=== PATIENT | male | born 1945 | race Caucasian/White ===

== ENCOUNTER 2023-03-26 11:57 | Emergency (ER) | payer MEDICARE, OTHER ==
[~2023-03-26] VITALS: Ht 175.3 cm; Wt 99.8 kg
[~2023-03-26 11:57] MED LIST: ASPI81CH; NAPR500 PO; RXCLIN PO; TRAM50 PO
[2023-03-26 14:37] LABS: BASOPHILS ABSOLUTE AUTO 0.04 K/mm3 (0.00-0.23); BASOPHILS PERCENT AUTO 1 % (0-2); EOSINOPHILS ABSOLUTE AUTO 0.06 K/mm3 (0.00-0.68); EOSINOPHILS PERCENT AUTO 1 % (0-6); Hematocrit 46.7 % (37.0-53.0); Hemoglobin 16.2 g/dL (13.5-17.5); IMMATURE GRAN ABSOLUTE AUTO 0.02 K/mm3 (0.00-0.10); IMMATURE GRAN PERCENT AUTO 0 % (0-1); LYMPHOCYTES PERCENT AUTO 22 % (21-46); MONOCYTES PERCENT AUTO 7 % (4-13); Mean Corpuscular HGB 31.2 pg (26.0-34.0); Mean Corpuscular HGB Conc 34.7 g/dL (31.5-36.5); Mean Corpuscular Volume 90 fL (80-100); Mean Platelet Volume 10.4 fL (9.1-12.4); NEUTROPHILS PERCENT AUTO 70 % (41-73); Platelet Count 243 K/mm3 (150-400); RDW Coefficient Variation 12.2 % (11.7-14.2); RDW Standard Deviation 40.3 fL (35.1-46.3); White Blood Cell Count 8.72 K/mm3 (4.00-11.30)
[2023-03-26 15:02] LABS: Albumin, Blood 3.7 g/dL (3.4-5.0); Albumin/Globulin Ratio 0.9 (0.8-1.8); Bilirubin, Total 0.8 mg/dL (0.1-1.0); Bun/Creatinine Ratio 15.8 (12.0-20.0); Calcium, Blood 9.3 mg/dL (8.5-10.1); Creatinine, Blood 0.95 mg/dL (0.60-1.20); Globulin, Blood 4.2 g/dL (2.2-4.0); Potassium, Blood 3.9 mmol/L (3.5-5.5); Total Protein, Blood 7.9 g/dL (6.4-8.2)
[2023-03-26] MEDS ORDERED: Robaxin750 MG PO (17:08)
[2023-03-26] MEDS ORDERED: LIDO700A20 TOP (17:08)
[2023-03-26] MEDS ORDERED: OXAYDO5 M2 PO (17:08)
== END 2023-03-26 17:12 | disposition home or self-care (01) ==
LOC: ER 11:57
PROVIDERS: Physician Assistant
DX: S22.42XA Multiple fractures of ribs, left side, initial encounter for closed fracture (principal); S32.019A Unspecified fracture of first lumbar vertebra, initial encounter for closed fracture; R10.12 Left upper quadrant pain; R55 Syncope and collapse; F10.10 Alcohol abuse, uncomplicated; F17.200 Nicotine dependence, unspecified, uncomplicated; Z79.82 Long term (current) use of aspirin; Z88.0 Allergy status to penicillin; Z88.1 Allergy status to other antibiotic agents; Z88.5 Allergy status to narcotic agent; W10.9XXA Fall (on) (from) unspecified stairs and steps, initial encounter; Y92.009 Unspecified place in unspecified non-institutional (private) residence as the place of occurrence of the external cause; Y93.01 Activity, walking, marching and hiking
CPT/HCPCS: 71046; 72100; 74177; 80053; 83880; 84484; 85025; 96374-59; 99284-25; A9270; J1885; Q9967